=== PATIENT | female | born 1990 | race Caucasian/White ===

== ENCOUNTER 2024-02-28 20:39 | Emergency (ER) | payer BC ==
[2024-02-28] MEDS: Sodium Chloride 0.9% 1,000 ML IV ONE (21:00)
[2024-02-28] MEDS: Morphine 4 MG/ML Syringe IVPUSH ONE (21:01)
[2024-02-28] MEDS: Ondansetron 4 MG/2 ML SDV IVPUSH ONE (21:01)
[2024-02-28 21:10] LABS: BASOPHILS ABSOLUTE AUTO 0.04 K/uL (0.00-0.20); BASOPHILS PERCENT AUTO 0.5 % (0.0-1.0); EOSINOPHILS ABSOLUTE AUTO 0.11 K/uL (0.00-0.45); EOSINOPHILS PERCENT AUTO 1.3 % (0.0-6.0); HEMATOCRIT 37.2 % (37.0-47.0); HEMOGLOBIN 12.6 g/dL (12.0-16.0); IMMATURE GRAN ABSOLUTE AUTO 0.02 K/uL (0.00-0.05); IMMATURE GRAN PERCENT AUTO 0.2 % (0.0-0.4); LYMPHOCYTES ABSOLUTE AUTO 3.08 K/uL (1.00-4.80); LYMPHOCYTES PERCENT AUTO 36.1 % (24.0-44.0); MEAN CORPUSCULAR HEMOGLOBIN 29.1 pg (28.0-32.0); MEAN CORPUSCULAR HGB CONC 33.9 g/dL (32.0-36.0); MEAN CORPUSCULAR VOLUME 85.9 fL (83.0-99.0); MEAN PLATELET VOLUME 10.8 fL (9.4-12.3); MONOCYTES ABSOLUTE AUTO 0.59 K/uL (0.00-0.80); MONOCYTES PERCENT AUTO 6.9 % (0.0-8.0); NEUTROPHILS ABSOLUTE AUTO 4.69 K/uL (1.80-7.70); PLATELET COUNT,PLT 269 K/uL (150-400); RED BLOOD CELL COUNT 4.33 M/uL (4.10-5.30); WHITE BLOOD CELL COUNT,WBC 8.53 K/uL (3.9-11.3)
[2024-02-28 21:39] LABS: A/G RATIO 1.2 (0.9-1.6); ALANINE AMINOTRANSFERASE,ALT 23 IU/L (14-63); ALBUMIN 3.7 g/dL (3.4-5.0); ALKALINE PHOSPHATASE 63 U/L (46-116); ASPARTATE AMNIOTRANSFERASE,AST 18 IU/L (15-37); BILIRUBIN TOTAL 0.3 mg/dL (0.2-1.0); BLOOD UREA NITROGEN,BUN 13 mg/dL (7.0-18.0); CALCIUM 8.9 mg/dL (8.5-10.1); CHLORIDE,CL 103 mmol/L (98-107); CREATININE 0.8 mg/dL (0.6-1.0); GLUCOSE RANDOM 96 mg/dL (74-106); LIPASE 56 U/L (16-77); POTASSIUM,K 3.6 mmol/L (3.5-5.1); PROTEIN TOTAL,TP 6.9 g/dL (6.4-8.2); SODIUM,NA 139 mmol/L (136-145)
[2024-02-28 21:40] LABS: ESTIMATED GFR 99 mL/min (>60)
== END 2024-02-28 22:00 | disposition home or self-care (01) ==
LOC: MW.ED 20:39
DX: R10.13 Epigastric pain (principal); Z75.8 Other problems related to medical facilities and other health care
CPT/HCPCS: 36415; 80053; 83690; 85025; 96361; 96374; 96375; 99284; J2270; J2405; J7030

== ENCOUNTER 2024-04-01 06:25 | Day surgery (SDC) | payer BC ==
[~2024-04-01 06:25] MED LIST: Sodium Chloride 0.9% 10 ML Syringe FLUSH PRN; Sodium Chloride 0.9% 2.5 ML Syringe FLUSH PRN; Sodium Chloride 0.9% 20 ML SDV IV PRN; ceFAZolin 2 GM in Sodium Chloride 0.9% 50 ML IV ONE
[2024-04-01] MEDS ORDERED: Bupivacaine 0.5% 30 ML SDV ONE (07:15)
[2024-04-01] MEDS: Lactated Ringers 1,000 ML IV SCH (07:18)
[2024-04-01] MEDS ORDERED: Bupivacaine 0.25% 10 ML SDV ONE (07:24)
[2024-04-01] MEDS ORDERED: HYDROmorphone 1 MG/ML Syringe IVPUSH PRN (07:25)
[2024-04-01] MEDS ORDERED: Morphine 2 MG/ML SYRINGE IVPUSH PRN (07:25)
[2024-04-01] MEDS ORDERED: Ropivacaine 0.5% 5 MG/ML 30 ML SDV ONE (07:25)
[2024-04-01] MEDS ORDERED: Naloxone 0.4 MG/ML SDV IVPUSH PRN (07:25)
[2024-04-01] MEDS ORDERED: Ondansetron 4 MG/2 ML SDV IVPUSH PRN (07:25)
[2024-04-01] MEDS ORDERED: Metoclopramide 10 MG/2 ML SDV IVPUSH PRN (07:25)
[2024-04-01] MEDS ORDERED: Albuterol 0.083% 2.5 MG/3 ML Neb Soln NEB PRN (07:25)
[2024-04-01] MEDS ORDERED: fentaNYL 50 MCG/ML SDV IVPUSH PRN (07:25)
[2024-04-01] MEDS ORDERED: Phenylephrine HCl In 0.9% NaCl 1 MG/10 ML Syringe IVPUSH PRN (07:25)
[2024-04-01] MEDS ORDERED: Morphine 10 MG/ML SDV ONE (07:27)
[2024-04-01] MEDS ORDERED: fentaNYL 100 MCG/2 ML SDV ONE (07:30)
[2024-04-01] MEDS ORDERED: Propofol 200 MG/20 ML SDV ONE (07:30)
[2024-04-01] MEDS ORDERED: Rocuronium Bromide 50 MG/5 ML Syringe ONE (07:30)
[2024-04-01] MEDS ORDERED: Ondansetron 4 MG/2 ML SDV ONE (07:30)
[2024-04-01] MEDS ORDERED: Dexamethasone 4 MG/ML 5 ML MDV ONE (07:30)
[2024-04-01] MEDS ORDERED: Midazolam 1 MG/ML 2 ML SDV ONE (07:30)
[2024-04-01] MEDS ORDERED: Lidocaine 1% 5 ML VIAL ONE (07:30)
[2024-04-01] MEDS: Scopalamine 1mg/3day Transdermal Patch TRDERM PRN (07:38)
[2024-04-01] MEDS ORDERED: Ketorolac 30 MG/ML SDV ONE (08:23)
[2024-04-01] MEDS ORDERED: Sugammadex Sodium 200 MG/2 ML VIAL IV ONE (08:23)
[2024-04-01] MEDS: Acetaminophen/HYDROcodone 325-5 MG Tab PO ONE (10:31)
== END 2024-04-01 11:10 | disposition home or self-care (01) ==
LOC: MW.SDS 06:25
PROVIDERS: ATTEND Surgery
DX: K80.10 Calculus of gallbladder with chronic cholecystitis without obstruction (principal); Z87.891 Personal history of nicotine dependence
CPT/HCPCS: 47562; 81025; A9270; J0131; J0665; J1100; J1885; J2250; J2272; J2405; J2704; J2795; J3010; J3490; J7120; 00790; 64999